=== PATIENT | female | born 1995 | race Caucasian/White ===

== ENCOUNTER → 2018-06-18 | Outpatient (CLI) | payer OTHER | END | disposition home or self-care (01) | LOC: STAR 10:26 | PROVIDERS: ATTEND Otolaryngology | DX: Z02.9 Encounter for administrative examinations, unspecified (principal) ==

== ENCOUNTER 2018-06-23 05:56 | Day surgery (SDC) | payer OTHER ==
[~2018-06-23] VITALS: Ht 162.6 cm; Wt 50.0 kg
[2018-06-23] MEDS ORDERED: EPINEPHRINE 1 MG/ML, 1ML ONE (06:36)
[2018-06-23] MEDS ORDERED: BUPIVACAINE/PF 0.25% ONE (06:36)
[2018-06-23] MEDS ORDERED: LACTATED RINGERS 1,000 ML IV SCH (07:01)
[2018-06-23 07:08] VITALS: BP 101/67
[2018-06-23] MEDS ORDERED: ACETAMINOPHEN 500 MG TABLET PO ONE (07:30)
[2018-06-23 07:45] LABS: HCG UR SG 1.016 (1.003-1.030)
[2018-06-23] MEDS ORDERED: FENTANYL PF 100 MCG/2ML ONE (08:16)
[2018-06-23] MEDS ORDERED: MIDAZOLAM 1 MG/ML, 2ML ONE (08:16)
[2018-06-23] MEDS ORDERED: PROPOFOL 50 ML ONE (08:21)
[2018-06-23] MEDS ORDERED: ONDANSETRON 2MG/ML, 2ML ONE (08:24)
[2018-06-23] MEDS ORDERED: LIDOCAINE 4%, 4 ML SYR/CANN TP ONE (08:24)
[2018-06-23] MEDS ORDERED: SUCCINYLCHOLINE 20 MG/ML, 10ML ONE (08:24)
[2018-06-23] MEDS ORDERED: DEXAMETHASONE 4 MG/ML, 1ML ONE (08:24)
[2018-06-23] MEDS ORDERED: CEFAZOLIN 1,000 MG ONE (08:24)
[2018-06-23] MEDS ORDERED: PROPOFOL 10 MG/ML, 50ML ONE (08:24)
[2018-06-23] MEDS ORDERED: ROCURONIUM 10 MG/ML,10ML ONE (08:24)
[2018-06-23] MEDS ORDERED: GLYCOPYRROLATE 0.2MG/1ML, 5ML ONE (08:24)
[2018-06-23] MEDS ORDERED: DIAZEPAM 5 MG/ML, 2ML IVPush PRN (08:30)
[2018-06-23] MEDS ORDERED: HYDROmorphone 2 MG/ML, 1ML IVPush PRN (08:30)
[2018-06-23] MEDS ORDERED: ONDANSETRON ODT 8 MG PO PRN (08:30)
[2018-06-23] MEDS ORDERED: PROMETHAZINE 25 MG/ML, 1ML IV PRN (08:30)
[2018-06-23] MEDS ORDERED: FENTANYL PF 100 MCG/2ML IV PRN (08:30)
[2018-06-23] MEDS ORDERED: MEPERIDINE/PF 25MG/0.5ML IVPush PRN (08:30)
[2018-06-23] MEDS ORDERED: ONDANSETRON 2MG/ML, 2ML IV PRN (08:30)
[2018-06-23] MEDS ORDERED: OXYcodone 5 MG/5 ML ORAL.SOL UDC PO PRN (08:30)
[2018-06-23] MEDS ORDERED: OXYcodone 5 MG/5 ML ORAL.SOL UDC ONE (09:22)
== END 2018-06-23 11:25 | disposition home or self-care (01) ==
LOC: OUT 05:56
PROVIDERS: ATTEND Otolaryngology
DX: J35.01 Chronic tonsillitis (principal); J35.3 Hypertrophy of tonsils with hypertrophy of adenoids; Z88.8 Allergy status to other drugs, medicaments and biological substances
CPT/HCPCS: 42821; 81025; 88304; J0171; J0330; J0690; J1100; J2250; J2405; J2704; J3010; J3490; J7120